=== PATIENT | female | born 1965 | race Caucasian/White ===

== ENCOUNTER 2018-02-10 18:39 | Emergency (ER) | payer MEDICAID ==
[~2018-02-10] VITALS: Ht 165.1 cm; Wt 60.3 kg
[~2018-02-10 18:39] MED LIST: ACET-1084 PO; ATOR20TA PO; BECL8.7A7 INH; COMIN IH; METO50TA7 PO; ONDA4TAB12 PO; PANT20TA3 PO; TIOT4MIS3
[2018-02-10] MEDS ORDERED: diphenhydrAMINE 50 mg/ml inj IV ONE (19:05)
[2018-02-10] MEDS ORDERED: normal saline 1000ML IV soln IVB ONE (19:05)
[2018-02-10] MEDS ORDERED: metoclopramide 5 mg/ml inj IV ONE (19:05)
[2018-02-10] MEDS ORDERED: LORazepam 2 mg/ml vial IV ONE (19:05)
[2018-02-10 19:31] LABS: BASOPHILS % (AUTO) 0.4 % (0-1); EOSINOPHILS # (AUTO) 0.1 X10'3 (0-0.9); HEMATOCRIT 35.4 % (35.0-45.0); LYMPHOCYTES # (AUTO) 1.9 X10'3 (1.1-4.8); LYMPHOCYTES % (AUTO) 22.4 % (21-51); MEAN CORPUSCULAR HEMOGLOBIN 34.1 PG (27.0-31.0); MEAN CORPUSCULAR HGB CONC 33.9 % (33.0-36.5); MEAN CORPUSCULAR VOLUME 100.8 FL (78-98); MEAN PLATELET VOLUME 6.3 FL (7.4-10.4); MONOCYTES # (AUTO) 0.7 X10'3 (0-0.9); MONOCYTES % (AUTO) 7.9 % (2-12); NEUTROPHILS # (AUTO) 5.8 X10'3 (1.8-7.7); NEUTROPHILS % (AUTO) 68.3 % (42-75); PLATELET COUNT 320 X10'3 (140-440); RED BLOOD COUNT 3.51 X10'6 (4.20-5.60); RED CELL DISTRIBUTION WIDTH 14.2 % (11.5-14.5); WHITE BLOOD COUNT 8.5 X10'3 (4.5-11.0)
[2018-02-10 19:42] VITALS: BP 108/75
[2018-02-10 19:42] LABS: INR 1.1 INR; PARTIAL THROMBOPLASTIN TIME 25 SECONDS (22-32); PROTHROMBIN TIME 11.1 SECONDS (9.0-12.0)
[2018-02-10 19:46] LABS: ALBUMIN 3.7 G/DL (3.4-5.0); ANION GAP 14 (8-16); BILIRUBIN,TOTAL 0.2 MG/DL (0.1-1.0); BLOOD UREA NITROGEN 27 MG/DL (7-18); BUN/CREATININE RATIO 24.3 (6.6-38.0); CALCIUM 8.5 MG/DL (8.5-10.1); CHLORIDE 98 MMOL/L (99-107); CREATININE 1.11 MG/DL (0.40-0.90); GLUCOSE 102 MG/DL (70-104); POTASSIUM 3.6 MMOL/L (3.5-5.1); SODIUM 134 MMOL/L (135-145); TOTAL CARBON DIOXIDE 22.1 MMOL/L (24-32); TOTAL PROTEIN 7.4 G/DL (6.4-8.2); eGFR 51 ML/MIN
[2018-02-10 19:47] LABS: ALANINE AMINOTRANSFERASE 61 U/L (12-78); ALKALINE PHOSPHATASE 106 IU/L (46-116); ASPARTATE AMINO TRANSFERASE 43 U/L (10-37)
[2018-02-10 19:48] LABS: TROPONIN I < 0.04 NG/ML (0.0-0.05)
[2018-02-10 19:51] LABS: ETHANOL 0.078 GM/DL (0.0-0.010)
[2018-02-10] MEDS ORDERED: ONDA4TAB12 PO ×2 (20:17→20:26)
[2018-02-10] MEDS ORDERED: POTA20TA19 PO (20:26)
== END 2018-02-10 20:37 | disposition home or self-care (01) ==
LOC: ER 18:40
DX: R51 Headache (principal); R11.0 Nausea; R20.0 Anesthesia of skin; E87.6 Hypokalemia; I25.10 Atherosclerotic heart disease of native coronary artery without angina pectoris; J44.9 Chronic obstructive pulmonary disease, unspecified; I10 Essential (primary) hypertension; F17.210 Nicotine dependence, cigarettes, uncomplicated; F12.10 Cannabis abuse, uncomplicated; Z98.51 Tubal ligation status; Z56.0 Unemployment, unspecified; Z98.890 Other specified postprocedural states; Z88.5 Allergy status to narcotic agent; Z79.899 Other long term (current) drug therapy
CPT/HCPCS: 36415; 70450; 71045; 80053; 80320; 84484; 85025; 85610; 85730; 93005; 96361; 96374; 96375; 99285; J1200; J2060; J2765; J7030

== ENCOUNTER 2018-10-11 12:00 | Outpatient (CLI) | payer MEDICAID ==
[2018-10-11] MEDS ORDERED: CAPS60CR6 TP (12:54)
[2018-10-11] MEDS ORDERED: ACYC-202 PO (12:54)
== END 2018-10-11 23:59 | disposition home or self-care (01) ==
LOC: LAB SPEC 12:00
PROVIDERS: ATTEND Internal Medicine Gastroenterology
DX: R19.7 Diarrhea, unspecified (principal); Z53.21 Procedure and treatment not carried out due to patient leaving prior to being seen by health care provider

== ENCOUNTER 2018-10-11 12:21 | Emergency (ER) | payer MEDICAID ==
[~2018-10-11] VITALS: Ht 165.1 cm; Wt 61.4 kg
[2018-10-11 12:35] VITALS: BP 154/102
[2018-10-11] MEDS ORDERED: CAPS60CR6 TP (12:54)
[2018-10-11] MEDS ORDERED: ACYC-202 PO (12:54)
== END 2018-10-11 13:09 | disposition home or self-care (01) ==
LOC: ER 12:21
DX: B02.9 Zoster without complications (principal); I10 Essential (primary) hypertension; I25.10 Atherosclerotic heart disease of native coronary artery without angina pectoris; E78.00 Pure hypercholesterolemia, unspecified; J44.9 Chronic obstructive pulmonary disease, unspecified; K21.9 Gastro-esophageal reflux disease without esophagitis; F12.90 Cannabis use, unspecified, uncomplicated; Z98.51 Tubal ligation status; Z56.0 Unemployment, unspecified; Z88.6 Allergy status to analgesic agent
CPT/HCPCS: 99283

== ENCOUNTER 2021-01-25 06:57 | Day surgery (SDC) | payer MEDICAID ==
[~2021-01-25] VITALS: Ht 165.1 cm; Wt 53.2 kg
[~2021-01-25 06:57] MED LIST changes: +CAPS60CR6 TP; +PANT20TA18 PO; -PANT20TA3 PO
[2021-01-25 07:08] VITALS: BP 158/105
[2021-01-25] MEDS ORDERED: LIDOcaine Viscous 15ml cup ONE (07:25)
[2021-01-25] MEDS ORDERED: MIDAZolam 1 MG/ML 5ML VIAL ONE (07:25)
[2021-01-25] MEDS ORDERED: fentaNYL/PF 50MCG/1 ML 2ML syringe ONE (07:25)
[2021-01-25] MEDS ORDERED: LISI10TA27 PO (07:28)
[2021-01-25] MEDS ORDERED: ASPI-1265 PO (07:28)
[2021-01-25] MEDS ORDERED: LEVO25CA4 PO (07:29)
[2021-01-25] MEDS ORDERED: ALBU8HFA PO (07:29)
[2021-01-25] MEDS ORDERED: FLUT1BLS11 IH (07:30)
[2021-01-25 09:18] VITALS: BP 119/86
[2021-01-25 09:28] VITALS: BP 112/83
[2021-01-25 09:38] VITALS: BP 117/87
[2021-01-25 09:48] VITALS: BP 119/82
== END 2021-01-25 10:09 | disposition home or self-care (01) ==
LOC: GI LAB 06:57
PROVIDERS: ATTEND Internal Medicine Gastroenterology
DX: R10.10 Upper abdominal pain, unspecified (principal); K21.00 Gastro-esophageal reflux disease with esophagitis, without bleeding; K29.50 Unspecified chronic gastritis without bleeding; K22.70 Barrett's esophagus without dysplasia; K31.89 Other diseases of stomach and duodenum; K26.9 Duodenal ulcer, unspecified as acute or chronic, without hemorrhage or perforation; K29.80 Duodenitis without bleeding; J44.9 Chronic obstructive pulmonary disease, unspecified; I10 Essential (primary) hypertension; I25.2 Old myocardial infarction; Z72.89 Other problems related to lifestyle; F17.290 Nicotine dependence, other tobacco product, uncomplicated; Z79.82 Long term (current) use of aspirin; Z79.899 Other long term (current) drug therapy
CPT/HCPCS: 43239; 99152; J2250; J3010; J7040; A4620

== ENCOUNTER 2021-10-06 08:50 | Day surgery (SDC) | payer MEDICAID ==
[~2021-10-06] VITALS: Ht 165.1 cm; Wt 59.1 kg
[~2021-10-06 08:50] MED LIST changes: +ALBU8HFA PO; +ASPI-1265 PO; -BECL8.7A7 INH; -CAPS60CR6 TP; +FLUT1BLS11 IH; +LEVO25CA4 PO; +LISI10TA27 PO; -PANT20TA18 PO; -TIOT4MIS3
[2021-10-06 09:00] VITALS: BP 156/90
[2021-10-06] MEDS ORDERED: fentaNYL/PF 50MCG/1 ML 2ML syringe ONE (09:17)
[2021-10-06] MEDS ORDERED: MIDAZolam 1 MG/ML 5ML VIAL ONE (09:17)
[2021-10-06] MEDS ORDERED: LIDOcaine Viscous 15ml cup ONE (09:17)
[2021-10-06 09:53] VITALS: BP 134/81
[2021-10-06 10:03] VITALS: BP 126/82
[2021-10-06 10:13] VITALS: BP 140/95
[2021-10-06 10:23] VITALS: BP 133/89
== END 2021-10-06 10:25 | disposition home or self-care (01) ==
LOC: GI LAB 08:50
PROVIDERS: ATTEND Internal Medicine Gastroenterology
DX: K21.00 Gastro-esophageal reflux disease with esophagitis, without bleeding (principal); K22.70 Barrett's esophagus without dysplasia; K29.50 Unspecified chronic gastritis without bleeding; Z72.89 Other problems related to lifestyle; Z88.5 Allergy status to narcotic agent
CPT/HCPCS: 43239; 99152; J2250; J3010; J7040; Z7512; A4620

== ENCOUNTER 2021-12-11 19:33 | Emergency (ER) | payer MEDICAID ==
[~2021-12-11] VITALS: Ht 165.1 cm; Wt 54.5 kg
[2021-12-11 19:45] VITALS: BP 119/74
[2021-12-11] MEDS ORDERED: HYDROcodone/acetaminophen 10/325mg tab PO ONE (20:30)
[2021-12-11] MEDS ORDERED: amox tr/potassium clavulanate 875/125mg TAB PO ONE (20:30)
[2021-12-11] MEDS ORDERED: IBUP-1984 PO (20:39)
[2021-12-11] MEDS ORDERED: AMOX-117 PO (20:39)
== END 2021-12-11 20:50 | disposition home or self-care (01) ==
LOC: ER 19:34
DX: K08.89 Other specified disorders of teeth and supporting structures (principal); K02.9 Dental caries, unspecified; I25.10 Atherosclerotic heart disease of native coronary artery without angina pectoris; E78.00 Pure hypercholesterolemia, unspecified; I10 Essential (primary) hypertension; J44.9 Chronic obstructive pulmonary disease, unspecified; K21.9 Gastro-esophageal reflux disease without esophagitis; F12.90 Cannabis use, unspecified, uncomplicated; Z87.19 Personal history of other diseases of the digestive system; Z87.11 Personal history of peptic ulcer disease; Z86.2 Personal history of diseases of the blood and blood-forming organs and certain disorders involving the immune mechanism; Z85.43 Personal history of malignant neoplasm of ovary; Z90.49 Acquired absence of other specified parts of digestive tract; Z98.51 Tubal ligation status; Z72.89 Other problems related to lifestyle; Z59.00 Homelessness unspecified; Z79.82 Long term (current) use of aspirin; Z79.899 Other long term (current) drug therapy
CPT/HCPCS: 99283

== ENCOUNTER 2024-09-18 10:00 | Emergency (ER) | payer MEDICAID ==
[~2024-09-18] VITALS: Ht 162.6 cm; Wt 59.1 kg
[~2024-09-18 10:00] MED LIST changes: +ONDA-243 PO; -ONDA4TAB12 PO
[2024-09-18 10:29] VITALS: TEMP 98.2
[2024-09-18 11:07] LABS: BASOPHILS % (AUTO) 0.3 % (0-1); EOSINOPHILS % (AUTO) 0.1 % (0-6); HEMOGLOBIN 14.3 g/dl (12.0-16.0); LYMPHOCYTES # (AUTO) 1.3 X10'3 (1.1-4.8); LYMPHOCYTES % (AUTO) 10.1 % (21-51); MEAN CORPUSCULAR HEMOGLOBIN 32.3 PG (27.0-31.0); MEAN CORPUSCULAR HGB CONC 33.3 g/dL (33.0-36.5); MEAN PLATELET VOLUME 6.9 FL (7.4-10.4); MONOCYTES # (AUTO) 0.7 X10'3 (0-0.9); MONOCYTES % (AUTO) 5.5 % (2-12); NEUTROPHILS # (AUTO) 10.8 X10'3 (1.8-7.7); PLATELET COUNT 355 X10'3 (140-440); RED BLOOD COUNT 4.43 X10'6 (4.20-5.60); RED CELL DISTRIBUTION WIDTH 14.4 % (11.5-14.5); WHITE BLOOD COUNT 12.8 X10'3 (4.5-11.0)
[2024-09-18 11:20] LABS: ALANINE AMINOTRANSFERASE 32 U/L (12-78); ALBUMIN 3.9 G/DL (3.4-5.0); ALBUMIN/GLOBULIN RATIO 0.9 (1.1-1.5); ALKALINE PHOSPHATASE 107 IU/L (46-116); ANION GAP 13 (8-16); ASPARTATE AMINO TRANSFERASE 28 U/L (10-37); BILIRUBIN,TOTAL 0.4 MG/DL (0.1-1.0); BLOOD UREA NITROGEN 31 MG/DL (7-18); CHLORIDE 103 MMOL/L (99-107); CREATININE 0.86 MG/DL (0.40-0.90); GLUCOSE 115 MG/DL (70-104); POTASSIUM 4.7 MMOL/L (3.5-5.1); SODIUM 136 MMOL/L (135-145); TOTAL CARBON DIOXIDE 20.2 MMOL/L (24-32); TOTAL PROTEIN 8.3 G/DL (6.4-8.2); eCRCL 60 ML/MIN; eGFR 67 ML/MIN
[2024-09-18 11:28] LABS: PRO BRAIN NATRIURETIC PEPTIDE 172 PG/ML (0-125)
[2024-09-18] MEDS: ondansetron/PF 4mg/2ml inj IV ONE (13:23)
[2024-09-18 14:40] VITALS: BP 132/81; PULSE 99; RESP 16; O2SAT 98
[2024-09-18] MEDS: cephalexin 250mg capsule PO ONE (15:43)
[2024-09-18 16:03] LABS: BILIRUBIN,URINE NEGATIVE (Neg); CLARITY,URINE CLEAR (Clear); COLOR,URINE YELLOW (Yellow); GLUCOSE, URINE NEGATIVE (Neg); KETONES,URINE TRACE mg/dl (Neg); LEUKOCYTE ESTERASE ,URINE NEGATIVE (Neg); NITRITES, URINE NEGATIVE (Neg); OCCULT BLOOD,URINE TRACE-INTACT (Neg); PROTEIN,URINE TRACE mg/dl (Neg); UROBILINOGEN,URINE 0.2 E.U/dL (0.2-1.0)
[2024-09-18 16:10] LABS: URINE AMPHETAMINE SCREEN NEGATIVE (Neg); URINE BARBITUATE SCREEN NEGATIVE (Neg); URINE BENZODIAZEPINES SCREEN NEGATIVE (Neg); URINE CANNABINOID SCREEN POSITIVE (Neg); URINE COCAINE SCREEN NEGATIVE (Neg); URINE METHADONE SCREEN NEGATIVE (Neg); URINE OPIATE SCREEN NEGATIVE (Neg); URINE PHENCYCLIDINE SCREEN NEGATIVE (Neg)
[2024-09-18] MEDS ORDERED: CEPH-585 PO (16:14)
[2024-09-18 16:20] LABS: UA COLLECTION TYPE NON-SPECIFIED
[2024-09-18 16:26] LABS: WBC,URINE 0-4 /HPF (0-4)
[2024-09-18 16:27] LABS: BACTERIA,URINE FEW /HPF (Neg); RBC,URINE 0-2 /HPF (0-2); SQUAMOUS EPITHELIAL CELL,UR FEW /LPF (FEW); TRANSITIONAL EPI CELLS,URINE FEW /HPF
== END 2024-09-18 16:19 | disposition home or self-care (01) ==
LOC: ER 10:01
DX: R04.2 Hemoptysis (principal); Z20.822 Contact with and (suspected) exposure to COVID-19; I10 Essential (primary) hypertension; I25.10 Atherosclerotic heart disease of native coronary artery without angina pectoris; E78.00 Pure hypercholesterolemia, unspecified; J44.9 Chronic obstructive pulmonary disease, unspecified; K21.9 Gastro-esophageal reflux disease without esophagitis; F12.90 Cannabis use, unspecified, uncomplicated; F20.9 Schizophrenia, unspecified; Z79.82 Long term (current) use of aspirin; Z79.899 Other long term (current) drug therapy; Z98.51 Tubal ligation status; Z90.49 Acquired absence of other specified parts of digestive tract; Z87.11 Personal history of peptic ulcer disease; Z85.43 Personal history of malignant neoplasm of ovary
CPT/HCPCS: 36415; 71045; 80053; 80305; 81001; 83880; 84484; 85025; 86885; 86900; 86901; 87502; 87503; 87811; 93005; 96374; 99285; J2405

== ENCOUNTER 2025-01-09 10:30 | Emergency (ER) | payer MEDICAID ==
[~2025-01-09] VITALS: Ht 157.5 cm; Wt 61.1 kg
[2025-01-09 10:32] VITALS: TEMP 98.3
[2025-01-09 11:08] LABS: BASOPHILS # (AUTO) 0.1 X10'3 (0-0.2); BASOPHILS % (AUTO) 0.6 % (0-1); EOSINOPHILS % (AUTO) 0.4 % (0-6); HEMATOCRIT 39.7 % (35.0-45.0); HEMOGLOBIN 12.8 g/dl (12.0-16.0); LYMPHOCYTES # (AUTO) 1.8 X10'3 (1.1-4.8); LYMPHOCYTES % (AUTO) 16.5 % (21-51); MEAN CORPUSCULAR HEMOGLOBIN 28.5 PG (27.0-31.0); MEAN CORPUSCULAR HGB CONC 32.3 g/dL (33.0-36.5); MEAN CORPUSCULAR VOLUME 88.2 FL (78-98); MEAN PLATELET VOLUME 6.7 FL (7.4-10.4); MONOCYTES % (AUTO) 8.8 % (2-12); NEUTROPHILS # (AUTO) 8.1 X10'3 (1.8-7.7); NEUTROPHILS % (AUTO) 73.7 % (42-75); PLATELET COUNT 440 X10'3 (140-440); RED BLOOD COUNT 4.51 X10'6 (4.20-5.60)
[2025-01-09 11:17] LABS: ALANINE AMINOTRANSFERASE 34 U/L (12-78); ALKALINE PHOSPHATASE 90 IU/L (46-116); ANION GAP 13 (8-16); ASPARTATE AMINO TRANSFERASE 16 U/L (10-37); BILIRUBIN,TOTAL 0.6 MG/DL (0.1-1.0); BLOOD UREA NITROGEN 19 MG/DL (7-18); BUN/CREATININE RATIO 28.4 (10.0-20.0); CALCIUM 9.6 MG/DL (8.5-10.1); CHLORIDE 102 MMOL/L (99-107); CREATININE 0.67 MG/DL (0.40-0.90); GLUCOSE 125 MG/DL (70-104); POTASSIUM 4.3 MMOL/L (3.5-5.1); SODIUM 137 MMOL/L (135-145); TOTAL PROTEIN 7.9 G/DL (6.4-8.2); eCRCL 80 ML/MIN; eGFR 90 ML/MIN
[2025-01-09 14:47] VITALS: BP 152/96; PULSE 107; RESP 15; O2SAT 97
== END 2025-01-09 14:49 | disposition home or self-care (01) ==
LOC: ER 10:31
DX: R41.81 Age-related cognitive decline (principal); I10 Essential (primary) hypertension; F20.9 Schizophrenia, unspecified; E78.00 Pure hypercholesterolemia, unspecified; I25.10 Atherosclerotic heart disease of native coronary artery without angina pectoris; J44.1 Chronic obstructive pulmonary disease with (acute) exacerbation; F41.9 Anxiety disorder, unspecified; F32.A Depression, unspecified; D64.9 Anemia, unspecified; F12.90 Cannabis use, unspecified, uncomplicated; Z56.0 Unemployment, unspecified; Z85.43 Personal history of malignant neoplasm of ovary; Z90.49 Acquired absence of other specified parts of digestive tract; Z98.51 Tubal ligation status; W06.XXXA Fall from bed, initial encounter; Y93.89 Activity, other specified; Y92.89 Other specified places as the place of occurrence of the external cause; Y99.8 Other external cause status
CPT/HCPCS: 36415; 70450; 80053; 82140; 85025; 99284

== ENCOUNTER → 2025-01-09 | Emergency (ER) | payer MEDICAID ==
[~2025-01-09] VITALS: Ht 157.5 cm; Wt 59.6 kg
[~2025-01-09] MED LIST changes: -LEVO25CA4 PO; +LEVO25CA5 PO
[2025-01-09 18:15] VITALS: BP 157/101; PULSE 117; RESP 20; TEMP 97.3; O2SAT 96
== END | disposition left against medical advice (07) ==
LOC: ER 18:01
DX: R41.81 Age-related cognitive decline (principal); I25.10 Atherosclerotic heart disease of native coronary artery without angina pectoris; I10 Essential (primary) hypertension; F20.9 Schizophrenia, unspecified; E78.00 Pure hypercholesterolemia, unspecified; F41.9 Anxiety disorder, unspecified; F32.A Depression, unspecified; D64.9 Anemia, unspecified; K21.9 Gastro-esophageal reflux disease without esophagitis; J44.9 Chronic obstructive pulmonary disease, unspecified; F12.90 Cannabis use, unspecified, uncomplicated; Z85.43 Personal history of malignant neoplasm of ovary; Z90.49 Acquired absence of other specified parts of digestive tract; Z98.51 Tubal ligation status; Z79.82 Long term (current) use of aspirin; Z79.899 Other long term (current) drug therapy; Z56.0 Unemployment, unspecified
CPT/HCPCS: 99281